=== PATIENT | female | born 1935 | race Caucasian/White ===

== ENCOUNTER → 2017-03-24 | Outpatient (CLI) | payer MEDICARE ==
[2017-03-25 16:07] LABS: MYOGLOBIN 68 ng/mL (<70)
== END ==
LOC: LGSMG 11:22
PROVIDERS: Internal Medicine Nephrology
DX: E13.22 Other specified diabetes mellitus with diabetic chronic kidney disease (principal); N18.9 Chronic kidney disease, unspecified

== ENCOUNTER → 2017-03-29 | Outpatient (CLI) | payer MEDICARE, OTHER | END | disposition disaster alternative care site (69) | LOC: GRAD 06:58 | DX: N02.9 Recurrent and persistent hematuria with unspecified morphologic changes (principal); N26.1 Atrophy of kidney (terminal) ==